=== PATIENT | male | born 1970 | race Caucasian/White ===

== ENCOUNTER 2016-10-06 10:11 | Outpatient (CLI) | payer BC ==
--- NOTE | 2016-10-06 10:43 | DIAGNOSTIC IMAGING REPORT ---
PROCEDURE: XR ANKLE 3 OR 4 VIEWS - RIGHT INDICATION: ANKLE PX RIGHT TECHNIQUE: Four views. COMPARISON: None. FINDINGS: Osseous structures and joint spaces are normal. IMPRESSION: 1. Normal right ankle.
== END 2016-10-06 23:00 ==
LOC: XR SRH 10:11
DX: M25.571 Pain in right ankle and joints of right foot (principal)